=== PATIENT | male | born 2005 | race Caucasian/White ===

== ENCOUNTER 2025-11-06 02:37 | Day surgery (SDC) | payer SELFPAY ==
--- NOTE | 2025-11-02 13:43 | PC.NURSE ---
[facility] has started construction of its new state of the art ER which will open Spring 2026. With this, we anticipate parking may be a challenge for some our surgical patients and families. Parking spaces are limited but are available for all Surgical, obstetrics, and ER patients sharing this lot. If you arrive and find you are having a hard time finding a parking space, please note that we understand the challenges, please drive around the hospital and park near Hospital Entrance 1. When you enter this entrance, you can ask a volunteer to direct or take you back to the surgical waiting area to check in. We appreciate everyone?s understanding of these expected challenges while we build for your future. Report to the Outpatient Waiting Room, entrance under the green pavilion located off [address], at time _0830_ on date _[phone]_. Planned Procedure Time: _1030_.? Time changes happen often and if your time is changed the preop area will call you the afternoon before. - You and your visitor will be asked to self-screen and do not enter if you have any COVID symptoms. Please call surgeon if you need to reschedule. - A mask is optional within the hospital at this time. Patients may have clear liquids (water, carbonated beverages, clear teas, apple juice) until 3 hours prior to surgery with a maximum of 20 ounces. - No food from midnight until time of surgery and no smoking, or chewing tobacco (or any form of nicotine). No chewing gum, candy or mints. Take only the following medications with a SIP of water on the morning of surgery: ___None DO NOT STOP ANY OF YOUR OTHER PRESCRIPTION MEDICATIONS PRIOR TO SURGERY EXCEPT THE FOLLOWING Hold all vitamins and supplements for 3 days per anesthesiologist. Medications to discontinue per physician Date to take last dose Please no make-up, nail macedonian, hairspray, perfume, deodorant, or body powder the day of surgery.? No jewelry (including any body piercings) or valuables the day of surgery, leave them at home.? Please take a shower or bath the night before, or the morning of, surgery with an antibacterial soap.? Wear comfortable, loose fitting clothing.? - Jewelry must be removed prior to entering the operating room.? Rings and piercings that are not removed may be cut off. - The hospital will not accept responsibility for valuables.? - Please leave all valuables, including medications, at home the day of surgery. If you are going home after surgery, a licensed regional refrigerated cdl truck driver must drive you home.? - NO public transportation without another adult if you receive anesthesia. - We recommend that an adult stay with you for 24 hours following discharge. - We also recommend that you do not drive, make important decision, drink alcoholic beverages, or take any drugs that were not prescribed by your health care provider for at least 24 hours after your discharge time. Follow any additional instructions given to you from your surgeon. Telephone instructions given to __James___and asked if any additional questions and then verbalized understanding. Patient advised to call surgeon office or pre surgery nurse liaison [phone] if any additional questions.
--- NOTE | 2025-11-05 14:50 | P.HP_ITS ---
H&P: HPI History of Present Illness Date/Time: 11/05/25 14:50 Chief Complaint: snoring adenoid hypertrophy nasal obstruction recurrent URI sinusitis Narrative: planned surgical procedure [facility] Family History Family History (Updated 06/14/25 @ 13:29 by Tammy Lizama) Mother Depression Anxiety Sibling Anxiety Depression Grandparent Anxiety Depression Hypertension Malignant neoplasm of prostate Pancreatic cancer Social History Social History (Updated 06/14/25 @ 13:36 by Tammy Lizama) Social History: Caffeine-occasionally Smoking status: Never smoker Alcohol intake: current Drinks per week: 2 Substance use: never Substance use type: does not use Living arrangements: with family Occupation/Education: student Spiritual care concerns: No Meds Home Medications and Allergies Home Medications ?Medication ?Instructions ?Recorded ?Confirmed ?Type No Home Medications 06/14/25 11/02/25 H istory Allergies Allergy/AdvReac Type Severity Reaction Status Date / Time Penicillins Allergy Hives Verified 11/02/25 13:36 Exam Narrative: snoring large adenoids Assessment and Plan Assessment and plan (1) Snoring: Code(s): R06.83 - Snoring Status: Acute Assessment and Plan: plan OR adenoidectomy will start with transoral, perhaps need to do transnasal. Risks were discussed bleeding infection damage to surrounding structures need further procedures damage to septum nena palate velopharyngeal insufficiency failure to resolve symptoms especially if we do not address the tonsils. Change in taste change in swallow which can be permanent. Damage to any structure of the clavicle by myself. Damage any structures during induction and maintenance of anesthesia. Patient voiced understanding of these risks and agreed. No CSF leak brain brain damage a total blindness change in vision essentially go through the nose. (2) Adenoid hypertrophy: Code(s): J35.2 - Hypertrophy of adenoids Status: Acute (3) Recurrent sinusitis: Code(s): J32.9 - Chronic sinusitis, unspecified Status: Acute
[2025-11-06] VITALS (8 sets, daily range): BP systolic 118–155; BP diastolic 69–94; PULSE 76–105; RESP 15–18; TEMP 36.2–36.4; O2SAT 100
--- OUTSIDE RECORDS SUMMARY | 2025-11-06 02:39 | XMS_ITS | Encounter Summary ---
Author Organization [facility] Address [address] [place] [address] Care Team Providers Care Dairy Feed Sales Consultant Name Role Phone Jada Stone MD Primary Care Provider [phone] Encounter Details Date Type Department Care Team (Late st Contact Info) Description 07/18/2022 Telephone [facility] Pediatrics - GI [address] 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 No / Unsure 07/18/2022 10:32 AM CDT documented as of this encounter Functional Status * Is person deaf or have serious hearing difficulty? Answer Date of Assessment Author No 06/25/2018 9:32 PM CDT Lu Aranda RN * Is person blind or have serious difficulty seeing? Answer Date of Assessment Author No 06/25/2018 9:32 PM CDT Jalipa, A lan J, RN * Does person have serious difficulty walking/climbing stairs? Answer Date of Assessment Author No 06/25/2018 9:32 PM CDT Lu Aranda RN * Does person have difficulty dressing/bathing? Answer Date of Assessment Author No 06/25/2018 9:32 PM CDT Lu Aranda RN * Does person have difficulty doing errands alone? Answer Date of Assessment Author No 06/25/2018 9:32 PM CDT Lu Aranda RN documented as of this encounter Mental Status * Does person have difficulty concentrating/remembering/making decisions? Answer Entry Date Author No 06/25/2018 9:32 PM KYLET Lu Aranda RN documented in this encounter Miscellaneous Notes * Telephone Encounter - Marilee Hurd RN - 07/18/2022 11:50 AM CDT Received referral for pts upcoming apt. Will upload to media folder and forward to provider. documented in this encounter Plan of Treatment Not on file documented as of this encounter Goals Goal Patient Goal Type Associated Problems Recent Progress Patient-Stated? Author Use safety retraint in car Lifestyle On track( 019 3:09 PM CDT) Shalini Almonte RN documented as of this encounter Visit Diagnoses Not on filedocumented in this encounter Care Teams Dairy Feed Sales Consultant Relationship Specialty Start Date End Date Jada Stone MD PCP - General Pediatrics 03/29/20 documented as of this encounter
--- OUTSIDE RECORDS SUMMARY | 2025-11-06 02:39 | XMS_ITS | Clinical Summary ---
Author Organization [facility] Address [address] [place] [address] Care Team Providers Care Automotive Engineering Technician Name Role Phone Unavailable Primary Care Provider Unavailabl e Social History Tobacco Use Types Packs/Day Years Used Date Smoking Tobacco: Never Assessed Sex and Gender Information Value Date Recorded Sex Assigned at Not on file Legal Sex Male 1:07 PM EDT Gender Identity Not on file Sexual Orientation Not on file Plan of Treatment Not on file Medical Devices Not on file
--- OUTSIDE RECORDS SUMMARY | 2025-11-06 02:39 | XMS_ITS | Clinical Summary ---
Author Organization [facility] Address [address] [place] [address] Care Team Providers Care Storage Battery Charger Name Role Phone Jada Stone MD Primary Care Provider Source Comments [facility],non-owned Affiliates and Associated Physician Practices is amultiple site organization consisting of ambulatory clinics and hospital sitesin [place], [place], [place] and [place]. This disclosure is being madepursuant to the Care Everywhere program and may not contain all information available regarding this patient. Last updated 18.[facility] Allergies Active Allergy Reactions Criticality Noted Date Comments Penicillins Rash 12/05/2009 Penicillin V Urticaria Medium 06/25/2018 Peppers Urticaria High 08/21/2017 Jalapeno peppers, Eyes & lips swollen, hives Medications * Be aware that medications may not be up to date on this document. Alwaysverify current medications with the patient. lansoprazole (Prevacid) 30 MG capsule Take 30 mg by mouth 2 times daily 2 Active hyoscyamine (Levsin) 0.125 MG IR tablet Take 1 (one) tablet by mouth every 6 hours as needed for Spasms (as needed for abdominal pain) 20 tablet 1 2 Active Active Problems Patient Care Coordination No te Formatting of this note migh t be different from the original. TRANSFERRED TO [facility] Problem Noted Date Diagnosed Date Screening for condition 03/30/2018 Overview (03/30/2018): 04/20/14 POC Lipid Profile WNL Well child visit 07/09/2010 Overview (04/01/2019): 4 yo 07/09/10 5 yo 08/13/11 6 yo No WCC 7 yo 03/29/13 8 yo 04/20/14 9 yo 05/01/15 10 yo 04/08/16 11 yo 04/22/17 12 yo 03/30/18 13 yo 04/01/19 Resolved Problems Problem Noted Date Diagnosed Date Resolved Date Allergic contact dermatitis 06/25/2018 04/01/2019 Assessment & Plan (06/26/2018 1:27 AM CDT): Assessment: Christopher Sheridan is a 12 y.o. male with a history of eczema and prior skin infections who presents with a rapidly progressive rash not responding to clindamycin, concerning for skin infection. The rash is erythematous, vesiculopapular, and associated with swelling and yellow crusting. It involves the face, right eyelids, and right ear, but does not involve the ear canal or mucosa. No signs of orbital involvement in absence of eye pain, vision loss, or ophthalmoplegia. No induration or signs of abscess. No fevers or signs of systemic involvement. Likely diagnoses include cellulitis, erysipelas, and impetigo. Less likely etiologies include allergic reaction, contact dermatitis, and DRESS syndrome. Cellulitis most likely in the setting of poorly defined rash borders and no systemic signs. The most common cause of cellulitis is group A Streptococcus or Streptococcus pyogenes; S. aureus (including methicillin-resistant strains) is a notable but less common cause. Erysipelas tends to present more rapidly with systemic signs and clearly defined borders. Impetigo less likely as the rash does not have significant degree of crusting or vesicles, and is more characterized by erythema and swelling. Plan: - Continue PO Clindamycin 600mg TID - Serial exams using marked borders - Consider switching to Bactrim or Vancomycin for continued progression of rash refractory to clindamycin or for the development of systemic symptoms; Clindamycin has only 68% coverage of MRSA, per the antibiogram report, whereas Bactrim and Vacomycin provide 98% and 100% coverage respectively - Topical mupirocin - Benadryl PRN for itching and swelling - Consider culture of fluid from infection - Consult derm due to atypical severity of swelling and continued progression of rash Assessment & Plan (06/26/2018 1:24 AM CDT): Assessment: Christopher Sheridan is a 12 y.o. male with a history of eczema and prior skin infections who presents with a rapidly progressive rash not responding to clindamycin, concerning for skin infection. The rash is erythematous, vesiculopapular, and associated with swelling and yellow crusting. It involves the face, right eyelids, and right ear, but does not involve the ear canal or mucosa. No signs of orbital involvement in absence of eye pain, vision loss, or ophthalmoplegia. No induration or signs of abscess. No fevers or signs of systemic involvement. Likely diagnoses include cellulitis, erysipelas, and impetigo. Less likely etiologies include allergic reaction, contact dermatitis, and DRESS syndrome. Cellulitis most likely in the setting of poorly defined rash borders and no systemic signs. The most common cause of cellulitis is group A Streptococcus or Streptococcus pyogenes; S. aureus (including methicillin-resistant strains) is a notable but less common cause. Erysipelas tends to present more rapidly with systemic signs and clearly defined borders. Impetigo less likely as the rash does not have significant degree of crusting or vesicles, and is more characterized by erythema and swelling. Plan: - Continue PO Clindamycin 600mg TID - Serial exams using marked borders - Consider switching to Bactrim or Vancomycin for continued progression of rash refractory to clindamycin or for the development of systemic symptoms; Clindamycin has only 68% coverage of MRSA, per the antibiogram report, whereas Bactrim and Vacomycin provide 98% and 100% coverage respectively - Topical mupirocin - Benadryl PRN for itching and swelling - Consider culture of fluid from infection Croup 10/12/2017 03/30/2018 Overview (03/30/2018): 10/12/17 Oral prednisone Urticaria 09/15/2017 03/30/2018 Overview (03/30/2018): 09/15/17 Prednisone, Singulair Viral wart 01/17/2014 07/15/2016 Molluscum contagiosum 12/21/20122015 Overview (08/22/2017): Onset September 2012 on gluteal prominence 12/21/12 hx molluscm, + inflammation, Rx triamcinolone .025% (per Dr. Berg) January 2013 onset inflammation 06/01/13 cantharidin to one lesion on gluteal prominence to prevent prolonged inflammation from immune response (CG Derm) Tinea faciale 12/21/2012 03/30/2018 Overview (03/30/2018): onset February 2017 Rx 5d prednisone X 2 with improvement, then reoccurrance 2016 Rx TAC (Dr. Ruiz) 08/21/17 fungal cx; Rx terbinafine 1 dog itchy from allergies(since 2008), guinea pig (2nd, since 2015), 2 parakeets, fish lives with 2 adults and 1 sister (2 yr older) AOM (acute otitis media) 05/09/2012 Overview (09/21/2012): 05/09/12 [facility] - bilat ((zithromax) Neck pain 08/13/2011 07/15/2016 Overview (08/21/2011): 08/13/11 Naprosyn Acute sinusitis 11/04/2010 07/15/2016 Overview (01/01/2012): 11/04/10 Zithromax 12/23/11 Zithromax GERD (gastroesophageal reflux disease) 07/09/2010 07/15/2016 Overview (07/09/2010): 07/09/10 Prevacid Otitis externa 07/02/2010 07/15/2016 Overview (09/21/2012): 07/02/10 Right (Floxin) 05/09/12 [facility] (left - cortisporin) Headache 12/21/2009 07/15/2016 Overview (09/23/2015): Streptococcal pharyngitis 12/14/2009 Overview (05/25/2016): 12/14/09 Zithromax 01/14/10 Omnicef 02/14/15 Omnicef (phone Diagnosis), father with +RSS 05/20/16 zithromax Immunizations Immunization Administration Dates Next Due INFLUENZA VACCINE, TRIV. (AF LURIA, FLUZONE TRIVALENT; 6MO+) (IIV3) 08/13/2011,09/03/2010,07/23/2010 DTaP VACCINE IM (6wk-6yrs) 04/27/2009,,05/02/2005,02/28,01/03/2005 HEP A PEDS 2 DOSE 07/03/2006,12/19/2005 HEP B VACCINE, PED/ADOL 05/02/2005,02/28,01/03/2005,11/02 HIB BOOSTER 03/27/2006, 5,02/28/2005,01/03 Human Papilloma Virus Nineva lent Vaccine 04/01/2019 INFLUENZA VACCINE 07/30/2009, 7,12/18/2006,11/13 MENINGOCOCCAL ACWY (MCV4P) VAC IM 04/08/2016 MMR 07/09/2010,12/19/2005 PNEUMOCOCCAL CONJ, PEDS 03/27/2006,05/02,02/28/2005,01/03 POLIO IPV 04/27/2009, 5,02/28/2005,01/03 PPD 04/27/2009 TDAP (7yrs+) 04/08/2016 VARICELLA 07/09/2010,12/19/2005 Family History Medical History Relation Name Comments Allergies Child Allergies Father Hay Fever Father Strep throat Father Allergies Maternal Grandfather Cancer Maternal Grandfather Cancer Maternal Grandmother Allergies Mother Eczema Mother Hay Fever Mother Strep throat Mother Cancer Paternal Grandfather Cancer - Skin, Melanoma Paternal Grandfather Diabetes Paternal Grandfather Hypertension Paternal Grandfather Allergies Paternal Grandmother Cancer Paternal Grandmother Hypertension Paternal Grandmother Kidney Disease Paternal Grandmother Sinusitis Paternal Grandmother Eczema Sister Strep throat Sister Relation Name Status Comments Child Father Maternal Grandfather Maternal Grandmother Mother Paternal Grandfather Paternal Grandmother Sister Social History Tobacco Use Types Packs/Day Years Used Date Smoking Tobacco: Never Smokeless Tobacco: Never Alcohol Use Standard Drinks/Week Comments No 0 (1 standard drink = 0.6 oz pur e alcohol) Sex and Gender Information Value Date Recorded Sex Assigned at Not on file Legal Sex Male 6:56 AM 1 YEAR OL[employer] PRESCHO[employer] TE[employer] Gender Identity Not on file Sexual Orientation Not on file Last Filed Vital Signs Vital Sign Reading Time Taken Comments Blood Pressure 112/60 04/01/2019 3:09 PM CDT Pulse 86 06/26/2018 9:00 AM CDT Temperature 36.2 C (97.1 F) 07/06/2019 2:04 PM CDT Respiratory Rate 16 06/26/2018 9:00 AM CDT Oxygen Saturation 99% 10/04/2018 3:34 PM 1 YEAR OL[employer] PRESCHO[employer] TE[employer] Inhaled Oxygen Concentration - - Weight 88.5 kg (195 lb 1.7 oz) 08/08/2022 2:54 P M CDT Height 174 cm (5' 8.5) 08/08/2022 2:54 PM CDT Body Mass Index 29.23 08/08/2022 2:54 PM CDT Plan of Treatment Health Maintenance Due Date Last Done Comments HPV VACCINE (2 - Male 2-dose series) 10/02/2019 04/01/2019 HIV SCREENING 2019 MENINGOCOCCAL (Group B) VACCINE SHARED DECISION-MAKING (1 of 2 - Standard) 2020 HEPATITIS C SCREENING 10/28/2022 DEPRESSION SCREENING 11/16/2024 COVID-19 VACCINE ( season) 2025 INFLUENZA VACCINE (#1) 2025 1, 09/03/2010, 07/23/2010, Additional history exists DTAP/TDAP/TD VACCINES (7 - Td or Tdap) 04/08/2026 04/08/2016, 04/27/2009, 03/27/2006, Additional history exists ZOSTER VACCINE (1 of 2) 2054 HEPATITIS B VACCINE Completed 05/02/2005, 02/28/2005, 01/03/2005, Additional history exists HIB VACCINE Completed 03/27/2006, 04/16, 02/28/2005, Additional history exists PNEUMOCOCCAL VACCINE Completed 03/27/2006, 05/02/2005, 02/28/2005, Additional history exists MENINGOCOCCAL GROUPS A/C/Y/W VACCINE Aged Out 04/08/2016 No longer eligible based on patient's age to complete this topic Goals Goal Patient Goal Type Associated Problems Recent Progress Patient-Stated? Author Use safety retraint in car Lifestyle On track( 019 3:09 PM CDT) No Shalini Block RN Advance Directives * Full Code (Latest Code Status on File) Date Activated Date Inactivated Comments 06/25/2018 9:29 PM 06/26/2018 4:00 PM Care Teams Storage Battery Charger Relationship Specialty Start Date End Date Jada Stone MD PCP - General Pediatrics 03/29/20
--- NOTE | 2025-11-06 07:23 | WPDHPUPDATE1 ---
History and Physical Update Update Date/Time: 11/06/25 07:23 History and Physical has been reviewed, including an updated exam of the patient. There are NO changes in the patient's condition. Risks, benefits, and alternatives have been discussed and questions answered. Patient agrees to proceed with procedure.
[2025-11-06] MEDS: ACETAMINOPHEN 500 MG TABLET 1000 MG PO (08:45)
[2025-11-06] MEDS: LACTATED RINGERS 1,000 ML 30 ML IV CONT (08:45)
--- NOTE | 2025-11-06 09:43 | P.PNAN_ITS ---
Anes - Initial Pre Proc Eval Procedure: Operation Date: 11/06/25 10:30 Proposed Procedures p Adenoidectomy - Onofre Sanchez MD Date/Time: 11/06/25 09:43 Surgeon: Onofre Sanchez MD Pre Op Diagnosis: chronic sinu, hypertroph of tonsils&adenoids Patient Data Age: 20 Gender: M Height: 1.8 m Weight: 99 kg Last Vital Signs Temp 36.2 C L 11/06/25 08:25 Pulse 86 11/06/25 08:25 Resp 16 11/06/25 08:25 BP 155/90 H 11/06/25 08:25 Pulse Ox 100 11/06/25 08:25 O2 Del Method Room Air 11/06/25 08:25 Allergies Allergy/AdvReac Type Severity Reaction Status Date / Time Penicillins Allergy Hives Verified 11/06/25 09:17 Home Medications ?Medication ?Instructions ?Recorded ?Confirmed ?Type No Home Medications 06/14/25 12 H istory Patient hx anesthesia problems: none Family hx anesthesia problems: none Results Review: All pre-operative results and documents have been reviewed as part of the pre- operative evaluation. [facility] Family History Family History Mother Depression Anxiety Sibling Anxiety Depression Grandparent Anxiety Depression Hypertension Malignant neoplasm of prostate Pancreatic cancer Social History Social History Social History: Caffeine-occasionally Smoking status: Never smoker Alcohol intake: current Drinks per week: 2 Substance use: never Substance use type: does not use Living arrangements: with family Occupation/Education: student Spiritual care concerns: No Anes - Eval Final PreProcedure Day of Procedure 11/06/25 09:43 Patient weight: obese Heart: regular rate and rhythm Lungs: clear to auscultation Airway: Mallampati scale class II Neurological: alert and oriented Last oral intake: >/= 8 hours ASA classification: II Emergent: no Anesthetic plan: proceed Anesthesia type and monitoring: general ETT and standard monitoring Results Review: All pre-operative results and documents have been reviewed as part of the pre- operative evaluation. Informed Consent: The patient's anesthetic plan and its attendant risks and benefits were discussed with the patient/family/POA. Questions were solicited and answers provided to the satisfaction of the patient/family/POA.
--- NOTE | 2025-11-06 10:31 | W.PM.PROC2 ---
Procedure Note - Detailed Date of Procedure 11/06/25 Pre-op Diagnosis chronic sinu, hypertroph of tonsils&adenoids snoring adenoid hypertrophy Post-op Diagnosis Same Procedure Performed 1. Adenoidectomy Surgeon Onofre Sanchez MD Anesthesia General Indications See above Findings 4+ adenoids Description of Procedure Patient identified consent verified the preoperative holding area. Patient brought operating. Time-out performed. General anesthesia induced endotracheal tube secured airway. Patient prepped draped position procedure confirmed 2nd time-out performed. McIvor mouth gag inserted to reveal large tonsils 3+. Red rubber catheters placed transnasally suspending the soft palate anteriorly. Adenoid pad viewed. 4+. Removed Bovie suction electrocautery setting of 30. No damage to palate septum or nena. On there was some oozing this was controlled with the application of Afrin and a slight bit of more cautery. Patient tolerated everything very well. No complications. The end of the procedure there was no further bleeding red rubber catheters were removed McIvor mouth gag removed. Total blood loss 1 cc. I performed all dictated portions procedure no complication care the patient back to Anesthesiology. Patient taken to PACU in good condition. Estimated Blood Loss 1 Drains No Packing No Pathology None sent Complications No immediate complications Condition Stable Disposition PACU [facility] Billing Surgery - Charge Forward: Surgery Billing
== END 2025-11-06 12:01 | disposition home or self-care (01) ==
PROVIDERS: Visit Provider Otolaryngology
PROC: (CPT 42831; principal; 2025-11-06 10:30)
DX: J35.3 Hypertrophy of tonsils with hypertrophy of adenoids (principal); J32.9 Chronic sinusitis, unspecified
CPT/HCPCS: 42831; A9270; J0330; J1100; J2250; J2405; J2704; J3010; J7120